=== PATIENT | male | born 1950 | race Caucasian/White ===

== ENCOUNTER 2016-07-31 05:06 | Day surgery (SDC) | payer OTHER ==
--- NOTE | ~2016-07-31 | OP ---
Record Of Operation [facility] [address] [place]. [address] NAME: JOSE MIGUEL WARREN : 52 STATUS : [facility] UNIT#: [id number] AGE: 65 ADM/REG DATE : 07/31/16 MR#: [id number] REPORT SERV DATE: 07/31/16 DICTATED BY: MANJEET CORTEZ DATE: 07/31/16 REPORT STATUS : Draft TRANSCRIBED BY: MODL DATE: 07/31/16 DATE OF PROCEDURE: 07/31/2016 PREPROCEDURE DIAGNOSIS: An 8 mm left ureteropelvic junction calculus. POSTPROCEDURE DIAGNOSIS: An 8 mm left ureteropelvic junction calculus. PROCEDURE: Left ESWL. SURGEON: Manjeet Cortez M.D. ASPARAGUS BUNCHER: Duy Stephens. ANESTHESIA: MAC. HISTORY: Mr. Warren is a 65-year-old white gentleman with a symptomatic left ureteropelvic junction calculus. We discussed treatment options and he requested left ESWL. Risks specific to this procedure include, but not limited to bleeding, infection, incomplete stone fragmentation, Steinstrasse, hematoma, injury to neighboring organs, need for further urologic procedures, anesthesia complications, and so forth. I answered all of his questions I believe to his satisfaction. Subsequently, he requested the procedure and provided informed written consent. PROCEDURE IN DETAIL: On 07/31/2016, the patient was brought to the lithotripsy suite. He was placed supine on the Dornier Compact Delta II Lithotripter. Biplanar fluoroscopy was used to localize the left ureteral calculus. A time-out was called. The proper patient and procedure were confirmed. Levaquin was administered as a perioperative antibiotic. At this time, the Anesthesia team established monitored anesthesia care. Subsequently, we delivered a total of 2500 shocks at a maximum power of 4 in rate of 120 shocks per minute to the stone. Fluoroscopy time was 1 minute 35 seconds. The patient tolerated the procedure well without immediate complications, was awakened and transferred to the recovery area in stable condition. FERN/GUS Manjeet Cortez M.D. / [id number] CC: Rodney Aguilera M.D.
[~2016-07-31 05:06] MED LIST: ACET500CAP PO; ADVIL PO; BENICAR20 PO; FLOMAX4 PO; GLUCCHONDR PO; MERIDIA; MERIDIA10 MG PO; PERCOCET 7.5/321 TAB PO; PRILOSEC10 MG PO
[2016-07-31 06:14] LABS: HEMOGLOBIN 14.8 g/dL (13.6-17.8)
[2016-07-31 06:20] LABS: BUN (BLOOD UREA NITROGEN) 23 MG/DL (6-23); CALCIUM, SERUM 9.3 MG/DL (8.5-10.4); CHLORIDE, SERUM 111 MMOL/L (96-112); CO2 (CARBON DIOXIDE) 26 MMOL/L (24-34); CREATININE 1.06 MG/DL (0.70-1.30); GFR AFRICAN AMERICAN 86 ML/MIN (>=60); GFR NON AFRICAN AMERICAN 74 ML/MIN (>=60); GLUCOSE, SERUM 110 MG/DL (60-99); POTASSIUM, SERUM 4.1 MMOL/L (3.5-5.3); SODIUM, SERUM 145 MMOL/L (135-148)
[2016-08-10] MEDS ORDERED: DIL2TAB PO (16:50)
== END 2016-07-31 09:28 | disposition home or self-care (01) ==
LOC: SDC 05:06
PROVIDERS: Urology
PROC: 0TF7XZZ Fragmentation in Left Ureter, External Approach (ICD-10-PCS; principal; 2016-07-31 07:00)
DX: N20.1 Calculus of ureter (principal); K21.9 Gastro-esophageal reflux disease without esophagitis; I10 Essential (primary) hypertension; E03.9 Hypothyroidism, unspecified; Z88.5 Allergy status to narcotic agent; Z88.8 Allergy status to other drugs, medicaments and biological substances; Z79.891 Long term (current) use of opiate analgesic; Z79.899 Other long term (current) drug therapy; Z98.1 Arthrodesis status; Z98.890 Other specified postprocedural states; Z87.442 Personal history of urinary calculi
CPT/HCPCS: 50590; 74000; 80048; 85014; 85018; 93005; J2250; J3010

== ENCOUNTER 2016-08-02 23:05 | Observation (INO) | payer OTHER ==
--- NOTE | ~2016-08-02 | HP ---
History And Physical [facility] [id number] [place]. [address] NAME: JOSE MIGUEL WARREN : 52 STATUS : DIS Pily PAT#: [id number] AGE: 65 ADM/REG DATE : 08/02/16 MR#: [id number] REPORT SERV DATE: 08/03/16 DICTATED BY: EVAN BUSH JR. DATE: 08/03/16 REPORT STATUS : Draft TRANSCRIBED BY: GUS DATE: 08/03/16 DATE OF ADMISSION: 08/02/2016 CHIEF COMPLAINT: Left renal pelvic stone with intractable pain. HISTORY OF PRESENT ILLNESS: Mr. Warren is a very pleasant 65-year-old gentleman, who is status post ESWL, 15 x 9 mm left renal pelvic stone on 07/30/2016. He presented back to the emergency room last night with intractable pain and nausea. He was admitted for pain control and possible double-J stenting. PAST MEDICAL HISTORY: Significant for kidney stones in the past, hypertension, and knee replacement surgery. FAMILY HISTORY: Positive for diabetes, hypertension. SOCIAL HISTORY: He is . Lives with his spouse. He does not drink alcohol or use illicit drugs, and he does not smoke cigarettes. REVIEW OF SYSTEMS: A 10-system review was performed. Pertinent negatives include no fever, no vomiting, no chest pain, no shortness of breath. Pertinent positives nausea, dysuria, and flank pain. HOME MEDICATIONS: Include Benicar and Prilosec. ALLERGIES: CODEINE AND ASPIRIN. PHYSICAL EXAMINATION: VITAL SIGNS: He is currently afebrile. Vital signs are stable. HEENT: Normocephalic and atraumatic. GENERAL: Well-nourished, well-developed male, in no acute distress. CHEST: Clear to auscultation bilaterally. HEART: Regular rate and rhythm. ABDOMEN: Soft, nontender, nondistended without palpable hernias. GENITOURINARY: Exam reveals normal male external genitalia. LABORATORY DATA: White count 10.6, hemoglobin 15.4, BUN 21, creatinine 1.23, blood sugar 130. Urine: 180 red cells per high-power field, 7 white cells per high-power field, few bacteria. X-rays KUB done which reveals the stone to be unchanged since his lithotripsy 9 x 15 mm in size at the left renal pelvis. ASSESSMENT: Left renal pelvic stone with intractable pain. RECOMMENDATIONS: We will admit for pain control and discussion of further treatment of the stone. I discussed this case with Dr. Watson. The plan at this point is to control his pain and place a double-J stent. If we were unable to do so, we will plan repeat lithotripsy versus ureteroscopic stone management in the near future. History And Physical [address] [place]. [address] NAME: JOSE MIGUEL WARREN : 52 STATUS : DIS Pily PAT#: [id number] AGE: 65 ADM/REG DATE : 08/02/16 MR#: [id number] REPORT SERV DATE: 08/03/16 DICTATED BY: EVAN BUSH JR. DATE: 08/03/16 REPORT STATUS : Draft TRANSCRIBED BY: GUS DATE: 08/03/16 MERNA/GUS Evan Bush Jr., M.D. / [id number] CC: Rodney Aguilera M.D.
[2016-08-02 23:38] LABS: BASOPHILS 0.1 %; BASOPHILS ABSOLUTE 0.01 10/3/uL (0.0-0.16); EOSINOPHILS 0.3 %; EOSINOPHILS ABSOLUTE 0.03 10/3/uL (0.0-0.53); HEMATOCRIT 44.2 % (40.0-51.0); HEMOGLOBIN 15.4 g/dL (13.6-17.8); IMMATURE GRANULOCYTES 0.1 %; IMMATURE GRANULOCYTES ABSOLUTE 0.01 10/3/uL (0.0-0.11); LYMPHOCYTES 6.8 %; LYMPHOCYTES ABSOLUTE 0.72 10/3/uL (0.67-4.30); MEAN CORPUS HGB CONC 34.8 g/dL (32.0-36.0); MEAN CORPUSCULAR HEMOGLOB 29.5 pg (26.0-34.0); MEAN CORPUSCULAR VOLUME 84.7 fL (80-100); MEAN PLATELET VOLUME 10.2 fL (9.2-13.0); MONOCYTES 3.7 %; MONOCYTES ABSOLUTE 0.39 10/3/uL (0.21-1.20); NEUTROPHILS ABSOLUTE 9.44 10/3/uL (2.02-8.40); PLATELET COUNT 208 10/3/uL (150-400); RED CELL COUNT 5.22 10/6/uL (4.7-6.1)
[2016-08-02 23:44] LABS: ER CBC TAT 0 Hrs 12 Mins; MANUAL DIFF NO %; WHITE BLOOD CELLS 10.6 10/3/uL (4.5-10.5)
[2016-08-02 23:48] LABS: BUN (BLOOD UREA NITROGEN) 21 MG/DL (6-23); CALCIUM, SERUM 9.2 MG/DL (8.5-10.4); CHLORIDE, SERUM 106 MMOL/L (96-112); CREATININE 1.23 MG/DL (0.70-1.30); GFR AFRICAN AMERICAN 71 ML/MIN (>=60); GFR NON AFRICAN AMERICAN 62 ML/MIN (>=60); GLUCOSE, SERUM 130 MG/DL (60-99); POTASSIUM, SERUM 4.6 MMOL/L (3.5-5.3); SODIUM, SERUM 140 MMOL/L (135-148)
[2016-08-02 23:50] LABS: CO2 (CARBON DIOXIDE) 32 MMOL/L (24-34)
[2016-08-03 00:28] LABS: ASCORBIC ACID (UR NOT ORDER) NEG (NEG); BILIRUBIN, URINE NEGATIVE (NEG); ER URINALYSIS TAT 0 Hrs 00 Mins; KETONE, URINE NEGATIVE (NEG); LEUKOCYTE ESTERASE(NOT OR NEG (NEG); NITRITE (URINE) NEG (NEG); WBC (NOT ORDERED) (RFLEX) 7 (0-5)
[2016-08-10] MEDS ORDERED: DIL2TAB PO (16:50)
== END 2016-08-03 11:17 | disposition home or self-care (01) ==
LOC: ER 23:05 → 4SO 23:59
PROVIDERS: Hospitalist
DX: N20.0 Calculus of kidney (principal); I10 Essential (primary) hypertension; Z98.890 Other specified postprocedural states; Z88.5 Allergy status to narcotic agent; Z88.8 Allergy status to other drugs, medicaments and biological substances; Z79.899 Other long term (current) drug therapy
CPT/HCPCS: 74000; 80048; 81001; 85025; 96374; 96376; 99285; G0378; J1170; J2405

== ENCOUNTER 2016-08-14 05:03 | Day surgery (SDC) | payer OTHER ==
--- NOTE | ~2016-08-14 | OP ---
Record Of Operation [facility] [address] [place]. [address] NAME: JOSE MIGUEL WARREN : 52 STATUS : [facility]#: [id number] AGE: 65 ADM/REG DATE : 08/14/16 MR#: [id number] REPORT SERV DATE: 08/14/16 DICTATED BY: MANJEET CORTEZ DATE: 08/14/16 REPORT STATUS : Draft TRANSCRIBED BY: MODL DATE: 08/14/16 DATE OF PROCEDURE: 08/14/2016 PREPROCEDURE DIAGNOSIS: 8 mm left ureteral calculus. POSTPROCEDURE DIAGNOSIS: 8 mm left ureteral calculus. PROCEDURE: Left ESWL. SURGEON: Manjeet Cortez M.D. CERTIFIED NURSES AIDE: Sylvia Winn. ANESTHESIA: MAC. HISTORY: Mr. Warren is a 65-year-old white gentleman, with a history of a large left ureteral pelvic junction calculus. He has previously undergone a lithotripsy session with distal migration, albeit incomplete fragmentation. We discussed treatment options and he requested repeat left ESWL. Risks specific to this procedure include, but not limited to bleeding, infection, incomplete stone fragmentation, Steinstrasse, hematoma, injury to neighboring organs, need for further urologic procedures, anesthesia complications, and so forth. I answered all his questions I believe to his satisfaction. Subsequently, he requested the procedure and provided his informed written consent. PROCEDURE IN DETAIL: On 08/14/2016, the patient brought to the lithotripsy suite. He was placed supine on the Dornier Compact Delta II Lithotripter. Biplanar fluoroscopy was used to localize the left ureteral calculus. A time-out was called. The proper patient and procedure were confirmed. Levaquin was administered as a perioperative antibiotic. At this time, the Anesthesia team established monitored anesthesia care. Subsequently, we delivered a total of 3000 shocks at a maximum power level of 6 in rate of 120 shocks per minute to the stone. Fluoroscopy time was 30 seconds. The patient tolerated the procedure well without any immediate complications. He was awakened and transferred to the recovery area in stable condition. RAC/MODL Manjeet Cortez M.D. / [id number] CC: Manjeet Cortez M.D. Record Of Operation [address] [address] NAME: JOSE MIGUEL WARREN : 52 STATUS : [facility] PAT#: [id number] AGE: 65 ADM/REG DATE : 08/14/16 MR#: [id number] REPORT SERV DATE: 08/14/16 DICTATED BY: MANJEET CORTEZ DATE: 08/14/16 REPORT STATUS : Draft TRANSCRIBED BY: MODL DATE: 08/14/16 Pk Vasquez M.D.
[~2016-08-14 05:03] MED LIST changes: +DIL2TAB PO
== END 2016-08-14 09:11 | disposition home or self-care (01) ==
LOC: SDC 05:03
PROVIDERS: Urology
PROC: 0TF7XZZ Fragmentation in Left Ureter, External Approach (ICD-10-PCS; principal; 2016-08-14 07:00)
DX: N20.1 Calculus of ureter (principal); I10 Essential (primary) hypertension; K21.9 Gastro-esophageal reflux disease without esophagitis; L71.9 Rosacea, unspecified; D34 Benign neoplasm of thyroid gland; Z98.1 Arthrodesis status; Z88.5 Allergy status to narcotic agent; Z88.6 Allergy status to analgesic agent; Z79.899 Other long term (current) drug therapy; Z87.891 Personal history of nicotine dependence; Z98.890 Other specified postprocedural states; Z87.442 Personal history of urinary calculi
CPT/HCPCS: 50590; 74000; J3010